=== PATIENT | female | born 1970 | race Caucasian/White ===

== ENCOUNTER 2021-01-27 08:28 | Outpatient (REF) | payer OTHER, SELFPAY ==
[2021-01-27 11:30] LABS: Hematocrit 39.5 % (37.0-47.0); Hemoglobin 12.9 g/dl (12.0-16.0); Mean Corpuscular HGB Conc 32.7 g/dl (31.0-35.0); Mean Corpuscular Hemoglobin 29.4 pg (27.0-33.0); Mean Platelet Volume 11.9 fL (9.4-12.3); Platelet Count 239 X10*3/uL (160-400); Red Blood Count 4.39 X10*6/uL (4.20-5.50); Red Cell Distribution Width 12.5 % (11.0-16.0); White Blood Count 5.9 X10*3/uL (4.8-10.8)
[2021-01-27 11:47] LABS: Alanine Aminotransferase 6 U/L (0-31); Albumin Level 4.3 g/dL (3.5-5.0); Alkaline Phosphatase 40 U/L (39-117); Anion Gap 11 (12-20); Aspartate Amino Transferase 11 U/L (5-31); Bilirubin Total 0.6 mg/dL (0.0-1.0); Blood Urea Nitrogen 16 mg/dL (9-16); Calcium 9.5 mg/dL (8.4-10.2); Carbon Dioxide 25 mmol/L (22-29); Chloride 106 mmol/L (96-108); Cholesterol 162 mg/dL; Estimated Glomerular Filt Rate > 60; Glucose Fasting 79 mg/dL (60-99); HDL Cholesterol 51 mg/dL; Iron 70 mcg/dL (30-160); LDL Cholesterol Calculated 98 mg/dl; Percent Iron Saturation 20 % (15-50); Potassium 3.7 mmol/L (3.3-5.1); Sodium 138 mmol/L (135-145); Total Iron Binding Capacity 354 mcg/dL (228-428); Total Protein 7.2 g/dL (6.5-8.0); Triglycerides 69 mg/dL; Unsaturated Iron Binding 284 ug/dL
[2021-01-27 11:59] LABS: TSH reflex Free T4 1.86 uIU/mL (0.32-4.0); Vitamin D 25-OH Total 27.7 ng/mL (>30)
== END 2021-01-27 08:29 | disposition home or self-care (01) ==
LOC: HO.HMGCLDS 08:28
PROVIDERS: PCP Internal Medicine; Visit Provider Internal Medicine
DX: Z00.00 Encounter for general adult medical examination without abnormal findings (principal); L29.0 Pruritus ani; D50.9 Iron deficiency anemia, unspecified
CPT/HCPCS: 36415; 80053; 80061; 82306; 83540; 84443; 85027

== ENCOUNTER 2022-01-31 08:59 | Outpatient (REF) | payer OTHER, SELFPAY ==
[2022-01-31 11:29] LABS: MANUAL DIFF FLAG NO
[2022-01-31 11:32] LABS: Appearance Urine Clear; Color Urine Yellow; Glucose Urine UA Negative (Negative); Leukocyte Esterase Urine Trace (Negative); Nitrite Urine Negative (Negative); PH 5.5 (5.0-9.0); UMIC TRIGGER UA YES; Urine Blood Moderate (2+) (Negative); Urine Ketones Negative (Negative); Urine Protein Negative (Neg-Trace)
[2022-01-31 11:38] LABS: Basophils Absolute Auto 0.1 X10*3/uL (0.0-0.2); Basophils Percent Auto 1.7 % (0-2); Eosinophils Absolute Auto 0.2 X10*3/uL (0.0-0.4); Hematocrit 37.1 % (37.0-47.0); Hemoglobin 12.1 g/dl (12.0-16.0); Imm Gran Abs Auto 0.01 X10*3/uL (0.00-0.03); Imm Gran Pct Auto 0.2 % (0.0-0.4); Lymphocytes Absolute Auto 1.4 X10*3/uL (1.2-4.9); Lymphocytes Percent Auto 29.5 % (20-40); Mean Corpuscular HGB Conc 32.6 g/dl (31.0-35.0); Mean Corpuscular Hemoglobin 29.7 pg (27.0-33.0); Mean Corpuscular Volume 91.2 fL (80.0-98.0); Mean Platelet Volume 11.8 fL (9.4-12.3); Monocytes Absolute Auto 0.4 X10*3/uL (0.1-1.2); Monocytes Percent Auto 8.6 % (2-11); Neutrophils Absolute Auto 2.7 x10*3/uL (2.0-8.3); Platelet Count 256 X10*3/uL (160-400); Red Blood Count 4.07 X10*6/uL (4.20-5.50); Red Cell Distribution Width 12.4 % (11.0-16.0); White Blood Count 4.7 X10*3/uL (4.8-10.8)
[2022-01-31 11:48] LABS: Bacteria Urine 1+ (None Seen); Hyaline Casts Urine 0-2 /LPF (0-2)
[2022-01-31 13:48] LABS: Alanine Aminotransferase 8 U/L (0-31); Albumin Level 4.1 g/dL (3.5-5.0); Alkaline Phosphatase 45 U/L (39-117); Anion Gap 9 (12-20); Aspartate Amino Transferase 13 U/L (5-31); Bilirubin Total 0.3 mg/dL (0.0-1.0); Blood Urea Nitrogen 12 mg/dL (9-16); Calcium 8.9 mg/dL (8.4-10.2); Carbon Dioxide 27 mmol/L (22-29); Chloride 108 mmol/L (96-108); Cholesterol 156 mg/dL; Estimated Glomerular Filt Rate > 60; Glucose Fasting 82 mg/dL (60-99); HDL Cholesterol 57 mg/dL; Iron 25 mcg/dL (30-160); LDL Cholesterol Calculated 87 mg/dl; Percent Iron Saturation 8 % (15-50); Potassium 3.9 mmol/L (3.3-5.1); Sodium 140 mmol/L (135-145); TSH reflex Free T4 1.38 uIU/mL (0.32-4.0); Total Iron Binding Capacity 308 mcg/dL (228-428); Total Protein 6.7 g/dL (6.5-8.0); Triglycerides 63 mg/dL; Unsaturated Iron Binding 283 ug/dL
[2022-02-01 08:58] LABS: Follicle Stimulating Hormone 5.3 mIU/mL
== END 2022-01-31 09:00 | disposition home or self-care (01) ==
LOC: HO.HMGCLDS 08:59
PROVIDERS: PCP Internal Medicine; Visit Provider Internal Medicine
DX: Z00.00 Encounter for general adult medical examination without abnormal findings (principal); N92.0 Excessive and frequent menstruation with regular cycle; D50.9 Iron deficiency anemia, unspecified
CPT/HCPCS: 36415; 80053; 80061; 81001; 83001; 83540; 84443; 85025

== ENCOUNTER 2022-02-08 09:16 | Outpatient (REF) | payer OTHER, SELFPAY ==
[2022-02-08 11:17] LABS: Appearance Urine Clear; Color Urine Yellow; Glucose Urine UA Negative (Negative); Leukocyte Esterase Urine Negative (Negative); Nitrite Urine Negative (Negative); PH 6.5 (5.0-9.0); Specific Gravity - Urine 1.025 (1.005-1.025); UMIC TRIGGER UACC YES; Urine Blood Trace (Negative); Urine Ketones Negative (Negative); Urine Protein Negative (Neg-Trace)
[2022-02-08 11:24] LABS: Bacteria Urine None Seen (None Seen); Hyaline Casts Urine 0-2 /LPF (0-2); Squamous Epithelial Cell Urine 0-2 /HPF (0-2); WBC Urine 0-5 /HPF (0-5)
== END 2022-02-08 09:17 | disposition home or self-care (01) ==
LOC: HO.HMGCLDS 09:16
PROVIDERS: PCP Internal Medicine; Visit Provider Internal Medicine
DX: R31.9 Hematuria, unspecified (principal)
CPT/HCPCS: 81001

== ENCOUNTER → 2022-03-16 08:54 | Outpatient (BNVA) | payer OTHER, SELFPAY | PROVIDERS: PCP Internal Medicine; Visit Provider Advanced Practice Midwife | DX: Z13.89 Encounter for screening for other disorder (principal) ==

== ENCOUNTER 2022-03-20 15:09 | Outpatient (REF) | payer OTHER, SELFPAY ==
--- NOTE | ~2022-03-20 | US_ITS ---
EXAMINATION: US RETROPERITONEAL LIMITED (RENAL ONLY) CLINICAL INFORMATION: Hematuria, unspecified. COMPARISON: None TECHNIQUE: Real-time imaging of the kidneys. FINDINGS: RIGHT KIDNEY: 11.2 x 5.5 x 5.4 cm (SAG x AP x TRV). The kidney is normal in size, contour, and echogenicity. Renal cortical thickness is normal. No renal calculi or focal parenchymal lesions. Mild pelviectasis LEFT KIDNEY: 11.1 x 5.0 x 4.1 cm (SAG x AP x TRV). The kidney is normal in size, contour, and echogenicity. Renal cortical thickness is normal. No renal calculi or focal parenchymal lesions. Mild pelviectasis. US/US renal BI IMPRESSION: Mild bilateral pelviectasis. No nephrolithiasis.
--- NOTE | ~2022-03-20 | US_ITS ---
EXAMINATION: US PELVIS CLINICAL INFORMATION: Excessive and frequent menstruation. COMPARISON: None TECHNIQUE: Ultrasound of the pelvis is performed using both transabdominal and transvaginal transducers along with Doppler. Transvaginal imaging is performed due to inadequate visualization transabdominally. FINDINGS: Uterus: The uterus is anteverted and measures 9.4 x 5.0 x 6.2 cm for a volume of 151 mL. The double wall endometrial thickness is 13 mm. The uterus is smooth in contour and has normal myometrial echogenicity. Two (2) uterine fibroids are seen, one anteriorly measuring 0.6 x 0.5 x 0.8 cm and one inferiorly measuring 1.9 x 1.3 x 2.3 cm. Some calcifications are seen in the cervix. Adnexa: Both ovaries are visualized. There is normal color flow to the adnexa. There is no ovarian torsion. There is no pelvic ascites or fluid collection. Right ovary measures 3.5 x 2.4 x 2.4 cm for a volume of 10.5 mL which includes a complex 2.0 x 1.8 x 1.3 cm cyst. Left ovary measures 2.4 x 2.2 x 1.8 cm for a volume of 5 mL. US/US pelvic and transvaginal IMPRESSION: 1. Two small uterine fibroids. 2. Benign-appearing right ovarian cyst needs no further follow-up.
== END 2022-03-20 15:10 | disposition home or self-care (01) ==
LOC: HO.HMGCX 15:09
PROVIDERS: PCP Internal Medicine; Visit Provider Internal Medicine
DX: R31.9 Hematuria, unspecified (principal); N92.0 Excessive and frequent menstruation with regular cycle; D50.9 Iron deficiency anemia, unspecified
CPT/HCPCS: 76775; 76830; 76856

== ENCOUNTER 2022-07-19 10:40 | Outpatient (REF) | payer OTHER, SELFPAY ==
--- NOTE | ~2022-07-19 | XR_ITS ---
EXAMINATION: XR CHEST CLINICAL INFORMATION: Cough. COMPARISON: None available. TECHNIQUE: 2 views of the chest were obtained. FINDINGS: No significant abnormality is noted involving the heart, lungs, mediastinum, bony thorax or soft tissues. XR/XR chest 2V IMPRESSION: Unremarkable chest examination.
== END 2022-07-19 10:41 | disposition home or self-care (01) ==
LOC: HO.HMGCX 10:40
PROVIDERS: PCP Internal Medicine; Visit Provider Internal Medicine
DX: R05.9 Cough, unspecified (principal)
CPT/HCPCS: 71046

== ENCOUNTER 2022-09-21 09:45 | Outpatient (AMB) | payer OTHER, SELFPAY ==
[2022-09-21 09:46] VITALS: BP 116/68; PULSE 88; O2SAT 98; BMI 23.0
--- NOTE | 2022-09-21 09:46 | A.OFFPC_ITS ---
Vital Signs 09/21/22 09:46 Height 5 ft 4 in Weight 134 lb BMI 23.0 BP 116/68 Blood Pressure Location Lt brachial Position Sitting Pulse 88 Pulse Source Pulse Oximeter Pulse Oximetry (%) 98 Oxygen Delivery Method Room Air Intake Visit Reasons: Follow up Intake Note: Pt is here today for a follow up visit. Allergies No Known Allergies Allergy (Verified 09/21/22 09:48) Tobacco use date assessed: 09/21/22 Dental Screening Dental Screen Date: 09/21/22 Did you have a dental visit in the last 12 months?: Yes Did you have a dental problem in the last 6 months where you did not have access to dental care?: No Was dental information given to patient?: Patient has dentist HPI Follow up HPI Details Pt presents for f/u migraine PERSON up to 3 times a month controlled on Ubrelvy. 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 1. Little interest or pleasure in doing things: not at all 2. Feeling down, depressed, or hopeless: not at all 3. Trouble falling or staying asleep, or sleeping too much: not at all 4. Feeling tired or having little energy: several days 5. Poor appetite or overeating: not at all 6. Feeling bad about yourself - or that you are a failure or have let yourself or your family down: not at all 7. Trouble concentrating on things, such as reading the newspaper or watching television: not at all 8. Moving or speaking so slowly that other people could have noticed. Or the opposite - being so fidgety or restless that you have been moving around a lot more than usual: not at all 9. Thoughts that you would be better off or of hurting yourself in some way: not at all Total score: 1 Depression Screening Interpretation: Negative Source: Developed by Drs. Navdeep Young, Gabby Porras, Gino Kramer and colleagues, with an educational susan from [employer] Thrive Questionnaire Date Thrive assessed: 09/21/22 I am a: Patient What is your living situation today?: I have a steady place to live Within the past 12 months, did the food you bought not last and you didn't have the money to get more?: Never true Within the past 12 months, did you worry whether your food would run out before you got money to buy more?: Never true Do you have trouble paying for medicines?: No Do you have trouble getting transportation to medical appointments?: No Do you have trouble paying your heating and electricity bill?: No Do you have trouble taking care of your child, family member or friend?: No Do you have trouble with day-to-day activities such as bathing, preparing meals, shopping, managing finances, etc.?: No Are you currently unemployed and looking for a job?: No Are you interested in more education?: No Please select the resources that you would like help with: None Currently or been in a relationship where the following occur: no concerns reported AUDIT C Alcohol Use Questionnaire (AUDIT-C) 1. How often do you have a drink containing alcohol?: 2-3 times a week 2. How many drinks containing alcohol do you have on a typical day when you are drinking?: 1 or 2 3. How often do you have six or more drinks on one occasion?: Never Total Score: 3 SANDEEP-7 AMB Questionnaire SANDEEP-7 Date SANDEEP - 7 assessed: 09/21/22 Feeling nervous, anxious, or on edge: 0 = Not at all Not being able to stop or control worryin = Not at all Worrying too much about different things: 0 = Not at all Trouble relaxin = Not at all Being so restless that it is hard to sit still: 0 = Not at all Becoming easily annoyed or irritable: 0 = Not at all Feeling afraid as if something awful might happen: 0 = Not at all Total SANDEEP-7 score (0-4 normal; 5-9 mild; 10-14 moderate; 15-21 severe): 0 Source: Developed by Drs. Navdeep Young, Gabby Porras, Gino Kramer and colleagues, with an educational susan from [employer] Review of Systems Const All systems reviewed & are unremarkable except as noted in HPI and below Reports no additional complaints Eyes Reports no additional complaints ENT Reports no additional complaints Card Reports no additional complaints Resp Reports no additional complaints GI Reports no additional complaints Reports no additional complaints Physical exam (Primary Care) Vital Signs: Last Vital Signs Pulse 88 09/21/22 09:46 BP 116/68 09/21/22 09:46 Pulse Ox 98 09/21/22 09:46 Oxygen Delivery Method Room Air 09/21/22 09:46 BMI result Body Mass Index 23.0 Tobacco/Smoking Status: Tobacco use Status Tobacco use date assessed 09/21/22 09/21/22 09:50 Patient Tobacco Use Status Former Tobacco user (09/21/22 09:50 years ) Tobacco use type Cigarette 09/21/22 09:50 e-Cigarette/Vaping Use Never Used 09/21/22 09:50 PHQ-9: PHQ-9 Score PHQ-9: Total score 1 09/21/22 09:53 Depression Screening Interpretation: Negative Thrive Assessment: Date of Thrive Assessment Date Thrive assessed 09/21/22 09/21/22 09:53 Currently or been in a relationship where the following occur: no concerns reported Const General: no acute distress HENMT Head: Yes normal to inspection Ears: hearing grossly normal bilaterally Throat: Yes posterior oropharynx normal Eyes General: appearance normal, both eyes and all related structures Resp Effort & Inspection: normal respiratory effort Auscultation: clear to auscultation bilaterally Cardio Rhythm: regular rhythm Heart sounds: S1 normal heart sound present and S2 normal heart sound present GI Auscultation: normal bowel sounds Assessment and Plan Assessment & Plan (1) Annual physical exam: Code(s): Z00.00 - Encounter for general adult medical examination without abnormal findings (2) Iron deficiency anemia: Code(s): D50.9 - Iron deficiency anemia, unspecified Plan: cont Iron suppl (3) Migraines: Code(s): G43.909 - Migraine, unspecified, not intractable, without status migrainosus Plan: cont Ubrelvy prn. PE in 6 months Orders: Orders MM screening mammo BI Today Z12.31 - Encounter for screening mammogram for malignant neoplasm of breast Lipid Panel 6 Months D50.9 - Iron deficiency anemia, unspecified, Z00.00 - Encounter for general adult medical examination without abnormal findings Comprehensive [place]. Panel Fast 6 Months D50.9 - Iron deficiency anemia, unspecified, Z00.00 - Encounter for general adult medical examination without abnormal findings IRON PROFILE 6 Months D50.9 - Iron deficiency anemia, unspecified, Z00.00 - Encounter for general adult medical examination without abnormal findings Complete Blood Count Auto Diff 6 Months D50.9 - Iron deficiency anemia, unspecified, Z00.00 - Encounter for general adult medical examination without abnormal findings UA w Microscopic 6 Months D50.9 - Iron deficiency anemia, unspecified, Z00.00 - Encounter for general adult medical examination without abnormal findings Referrals Gastroenterology Referral Z00.00 - Encounter for general adult medical examination without abnormal findings Coding Level of Care Code Est Pt Level 3 (43529) Diagnoses Annual physical exam Z00.00 Iron deficiency anemia D50.9 Migraines G43.909
== END 2022-09-21 10:37 | disposition home or self-care (01) ==
PROVIDERS: PCP Internal Medicine; Visit Provider Internal Medicine
DX: D50.9 Iron deficiency anemia, unspecified (principal); G43.909 Migraine, unspecified, not intractable, without status migrainosus
CPT/HCPCS: 99213

== ENCOUNTER 2022-11-08 11:33 | Outpatient (REF) | payer OTHER, SELFPAY | END 2022-11-08 11:34 | disposition home or self-care (01) | LOC: HO.MAMMO 11:33 | PROVIDERS: PCP Internal Medicine; Visit Provider Internal Medicine | DX: Z12.31 Encounter for screening mammogram for malignant neoplasm of breast (principal) | CPT/HCPCS: 77063; 77067 ==

== ENCOUNTER → 2022-11-08 11:45 | Outpatient (BNV) | payer OTHER, SELFPAY | PROVIDERS: PCP Internal Medicine; Visit Provider Radiology Diagnostic Radiology | DX: Z12.31 Encounter for screening mammogram for malignant neoplasm of breast (principal) | CPT/HCPCS: 77063; 77067 ==

== ENCOUNTER 2022-11-14 10:40 | Outpatient (REF) | payer OTHER, SELFPAY ==
[2022-11-14 13:21] LABS: MANUAL DIFF FLAG NO
[2022-11-14 13:39] LABS: Basophils Absolute Auto 0.1 X10*3/uL (0.0-0.2); Basophils Percent Auto 1.2 % (0-2); Eosinophils Absolute Auto 0.2 X10*3/uL (0.0-0.4); Eosinophils Percent Auto 4.7 % (0-4); Hematocrit 39.7 % (37.0-47.0); Hemoglobin 12.9 g/dl (12.0-16.0); Imm Gran Abs Auto 0.01 X10*3/uL (0.00-0.03); Imm Gran Pct Auto 0.2 % (0.0-0.4); Lymphocytes Absolute Auto 1.2 X10*3/uL (1.2-4.9); Lymphocytes Percent Auto 23.7 % (20-40); Mean Corpuscular HGB Conc 32.5 g/dl (31.0-35.0); Mean Corpuscular Hemoglobin 28.6 pg (27.0-33.0); Monocytes Absolute Auto 0.3 X10*3/uL (0.1-1.2); Monocytes Percent Auto 6.4 % (2-11); Neutrophils Absolute Auto 3.3 x10*3/uL (2.0-8.3); Neutrophils Percent Auto 63.8 % (45-73); Platelet Count 229 X10*3/uL (160-400); Red Blood Count 4.51 X10*6/uL (4.20-5.50); Red Cell Distribution Width 13.4 % (11.0-16.0); White Blood Count 5.1 X10*3/uL (4.8-10.8)
[2022-11-14 14:02] LABS: Alanine Aminotransferase < 5 U/L (0-31); Albumin Level 4.2 g/dL (3.5-5.0); Alkaline Phosphatase 46 U/L (39-117); Anion Gap 9 (12-20); Aspartate Amino Transferase 13 U/L (5-31); Bilirubin Total 0.3 mg/dL (0.0-1.0); Blood Urea Nitrogen 9 mg/dL (9-16); Calcium 9.4 mg/dL (8.4-10.2); Carbon Dioxide 25 mmol/L (22-29); Chloride 108 mmol/L (96-108); Estimated Glomerular Filt Rate > 60; Glucose Fasting 87 mg/dL (60-99); Iron 101 mcg/dL (30-160); Percent Iron Saturation 31 % (15-50); Potassium 3.8 mmol/L (3.3-5.1); Sodium 138 mmol/L (135-145); Total Iron Binding Capacity 321 mcg/dL (228-428); Total Protein 7.2 g/dL (6.5-8.0); Unsaturated Iron Binding 220 ug/dL
[2022-11-14 14:37] LABS: Folate 12.1 ng/mL (> or = 4.0); Vitamin B12 286 pg/mL (200-900)
== END 2022-11-14 10:41 | disposition home or self-care (01) ==
LOC: HO.HMGCLDS 10:40
PROVIDERS: PCP Internal Medicine; Visit Provider Internal Medicine
DX: D50.9 Iron deficiency anemia, unspecified (principal); Z86.2 Personal history of diseases of the blood and blood-forming organs and certain disorders involving the immune mechanism
CPT/HCPCS: 36415; 80053; 82607; 82746; 83540; 85025

== ENCOUNTER 2022-12-07 09:15 | Outpatient (AMB) | payer OTHER, SELFPAY ==
--- NOTE | 2022-12-07 09:20 | MHC.OFFVIS ---
Intake Vital Signs 12/07/22 09:22 Height 5 ft 4 in Weight 136 lb 10.986 oz BMI 23.5 BP 108/78 Blood Pressure Location Lt brachial Position Sitting Pulse 79 Intake Visit Reasons: Colonoscopy Screening Intake Note: Dolly presents in the office as a new patient for colonoscopy screening. CC: She states that she has never had a colonoscopy. She states that pains that she gets is before her period and she is not sure if it is menopause related. All her life she has had itching in her colon - she has steroid cream for her hemorrhoids. She has fairly small internal ones. The itching it not consistent but it has been there for a long time. Allergies No Known Allergies Allergy (Verified 12/07/22 09:23) Medication List - Last Reconciled 12/07/22 by Jamila Alex PA-C acetaminophen (Tylenol Extra Strength) 500 mg PO Q6H PRN ferrous sulfate (Feosol) 325 mg PO DAILY PRN Ubrelvy (ubrogepant) 100 mg PO ONCE NS HPI HPI Comments History of Present Illness Details A 52 y/o female referred for index screening colonoscopy Bowels are normal- has hemorrhoids- itching - uses creams-she has script from in [place] that works well- She is pre menopausal Appetite is good- she does not have heartburn- she has epigastric discomfort- it wanders- There is a known family history that this cause her for concern. She had an U/S there were no issues She is requesting an EGD- her father has a lot of intestinal issues -she had very rare occasion has regurg. 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 [employer] Housing: House Alcohol intake: current Alcohol intake frequency: a few times a week Patient Tobacco Use Status: Former Tobacco user (20 years ) Tobacco use type: Cigarette Years Smoked: 10 years e-Cigarette/Vaping Use: Never Used Current occupational status: employed Cognitive needs: No Hearing needs: No Vision needs: Yes Female Reproductive History Menstrual Age of Menarche: 14 Review of Systems Const All systems reviewed & are unremarkable except as noted in HPI and below Card Denies chest pain and Denies dyspnea Resp Denies dyspnea GI Denies abdominal pain, Denies heartburn, Denies diarrhea, Denies nausea, Denies vomiting and Reports other (rectal itch, left upper quadrant discomfort unable to qualify/quantum) Physical Exam Vital Signs: Last Vital Signs Pulse 79 12/07/22 09:22 BP 108/78 12/07/22 09:22 BMI result Body Mass Index 23.5 Const General: cooperative, healthy appearing and comfortable Orientation/consciousness: patient oriented x3 Limitations: no limitations Eyes Sclerae: sclerae normal Resp Effort & Inspection: normal respiratory effort and able to speak in complete sentences Auscultation: clear to auscultation bilaterally, no rales, no rhonchi and no wheezes Cardio Rate: regular rate Rhythm: regular rhythm Heart sounds: S1 normal heart sound present and S2 normal heart sound present GI Palpation (GI): Soft to palpation and nontender Auscultation: normal bowel sounds Skin General skin exam: no rashes or lesions noted Neuro General: patient oriented x3 Extrem General: Yes full ROM Psych Appearance: grossly normal and well kempt Mental Status: mental status grossly normal Speech and movement: Normal speech and movement present and Clear speech present Affect: normal affect Attitude: cooperative Thought process: Normal thought process present Thought content: Normal thought content present Insight: Good insight present (Psych) Judgement: Good judgement present (Psych) Assessment & Plan Assessment & Plan (1) Rectal itching: Comment: Pleasant somewhat anxious 52-year-old female Chronic rectal itching associates with hemorrhoids using unknown rectal cream with good response- Code(s): L29.0 - Pruritus ani Plan: Continue rectal cream (2) Encounter for screening colonoscopy: Comment: Screening colonoscopy EGD may be low yield however GI family history unclear if negative may be reassured Discussed procedures, rare risks, need for escorted Code(s): Z12.11 - Encounter for screening for malignant neoplasm of colon Plan: Index Screening colonoscopy Plan EGD/ colon - MG prep literature given Maintain high-fiber Rectal cream Orders: Orders H pylori Ag Stool Today A04.8 - Other specified bacterial intestinal infections EGD/[place] Combo - GI Use Only Today L29.0 - Pruritus ani, Z12.11 - Encounter for screening for malignant neoplasm of colon Medications: New bisacodyl (Dulcolax (bisacodyl)) Day before procedure, prep day Take 4 tablets by mouth upon awakening followed by large glass of water 20 mg (4 x 5 mg) PO ONCE 1 day 4 tabs 0RF colonoscopy prep Z12.11 - Encounter for screening for malignant neoplasm of colon polyethylene glycol 3350 (Miralax) Take as directed by mouth the day before your procedure. 238 grams PO ONCE 1 day PRN 238 grams 0RF laxative effect Changed From ferrous sulfate (Feosol) 325 mg PO DAILY 30 tabs 0RF To ferrous sulfate (Feosol) 325 mg PO DAILY PRN Patient Instructions: EGD/ colon - MG prep Maintain high Coding Level of Care Code New Pt Level 3 (10605) Diagnoses Rectal itching L29.0 Encounter for screening colonoscopy Z12.11 Time Spent (min) 30
[2022-12-07 09:22] VITALS: BP 108/78; PULSE 79; BMI 23.5
== END 2022-12-07 11:18 | disposition home or self-care (01) ==
PROVIDERS: PCP Internal Medicine; Visit Provider Physician Assistant
DX: L29.0 Pruritus ani (principal); Z12.11 Encounter for screening for malignant neoplasm of colon
CPT/HCPCS: 99203

== ENCOUNTER → 2022-12-07 09:15 | Outpatient (BNVA) | payer OTHER, SELFPAY | PROVIDERS: PCP Internal Medicine; Visit Provider Physician Assistant ==

== ENCOUNTER 2022-12-29 11:37 | Outpatient (REF) | payer OTHER, SELFPAY | END 2022-12-29 11:38 | disposition home or self-care (01) | LOC: HO.LNP 11:37 | PROVIDERS: Visit Provider Physician Assistant | DX: A04.8 Other specified bacterial intestinal infections (principal) | CPT/HCPCS: 87338 ==

== ENCOUNTER 2023-03-19 10:19 | Outpatient (AMB) | payer OTHER, SELFPAY ==
[2023-03-19 10:22] VITALS: BMI 26.8
--- NOTE | 2023-03-19 10:22 | MHC.OFFVIS ---
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 She is feeling absolutely drain by her heavy periods she is 52 years old and she is not sure when she will be going through menopause of course her mother went through menopause before 50. Her periods are absolutely regular and she could clock when she is going to get it as she was also able to tell exactly when she was ovulating on day 13 for all her life. On its heaviest day which is her 2nd day she is changing tampons 1 almost after another. 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 She also told me straight from the very beginning of the visit that she did not want to have another ultrasound because her insurance does not cover it and it cost her over a 1000 dollars to get the ultrasound last year. In addition she remembers that I talked to her about the Mirena IU S in the past and she does not think that is natural and is resistant to that idea as well. She says that she knows that her recent CBC was within the normal range however when she has ignored her symptoms of anemia in the past she became extremely anemic after her. She feels completely washed out and worn out and so per discussion with her doctor she has agreed on a plan to just take iron for that week. She used to take it all the time but she was recommended by her PCC in to not do that because she was within the normal range in too much iron isn't good either. She thinks that she may be a little bit depressed but it is mostly the migraines at her really impacted her life but the heavy periods do not help either. She is to the same person for 30 years and says he would like to have sex more than she does but has no worries about infection she does not want to get a Pap smear if it is not do because her insurance company will only pay for 1 every 5 years she has no history of abnormals she had thought that she had fibroids removed in the past but I reviewed her 74 pages of records from [place] and what she had removed was an endometrial polyp on 01/15/2018. She did have an ultrasound last spring per her primary that showed 2 small fibroids. She was wondering if they were growing but she does not want to repeat the ultrasound for the financial reasons. Her last Pap was done 01/13/2020 at [place] and it was negative with negative HPV and she has no history of abnormals At this visit we discussed all the possible ways of managing heavy menses which appeared very normal by her history and do not seem to in any way represent an abnormal bleeding pattern however they are heavy and they are troublesome to her leading to some periodic fluctuations of her H&H. Discussed the common use of the Mirena IU S discussed that sometimes progestin only pills maybe used because she asked about this but not as commonly as the Mirena to manage this issue. Also discussed the possible use of endometrial ablation however this is an expensive surgical procedure and most likely would not be covered unless other methods have been tried and failed. 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 [employer] Housing: House Alcohol intake: current Alcohol intake frequency: a few times a week Patient Tobacco Use Status: Former Tobacco user (20 years ) Tobacco use type: Cigarette Years Smoked: 10 years e-Cigarette/Vaping Use: Never Used Current occupational status: employed Cognitive needs: No Hearing needs: No Vision needs: Yes Female Reproductive History Menstrual Age of Menarche: 14 Duration of menses: 3-5 days Date of last menstrual period: 03/18/23 control method: none Total pregnancies: 2 Full term: 1 Number of Living Children: 1 Ab induced: 1 Date of last pap smear: 03/15/10 (negative) Date of Mammogram: 11/08/22 Physical Exam Vital Signs: BMI result Body Mass Index 26.8 Const General: healthy appearing, comfortable, no acute distress, well developed and alert Nutritional Appearance: average body habitus Orientation/consciousness: patient oriented x3 Limitations: no limitations HEENT Head: Yes normocephalic Neck Neck: Yes normal visual inspection Chest Chest palpation & inspection: normal inspection of the chest Breast/axilla inspection: normal inspection of the breasts and normal inspection of the axillae Breast/axilla palpation: normal palpation of the breasts and normal palpation of the axillae Resp Effort & Inspection: normal respiratory effort GI Inspection: Yes normal to inspection, No Abdominal wall edema and No distended Palpation (GI): Soft to palpation and nontender Other: Normal external exam normal vagina with heavy menses present cervix long close thick firm mobile midposition to anteverted uterus is retroverted mobile nontender and not enlarged adnexa not enlarged good tone with Kegel. General: Yes bladder normal to palpation External Female Exam: normal external appearance and normal appearance of the urethra Speculum Exam - Vagina: normal appearance of the vagina, normal palpation and normal vaginal discharge Speculum Exam - Cervix: normal appearance of the cervix, normal palpation and nontender Bimanual exam- vagina & uterus: normal bimanual exam, normal palpation, uterine size normal, bladder normal to palpation, consistency normal, normal palpation, uterine mobility normal, uterine shape normal, No Cervical tenderness present, non-tender and no cervical motion tenderness Bimanual Exam- Adnexa, other: normal adnexae, no masses, normal and No adnexal tenderness Neuro General: patient oriented x3 Results Reviewed Results Reviewed: Name: Wargulewska,Dolly Age/Sex: 52/F : 1970 Unit#: [id number] Attend Dr: Mikayla Yanez MD Re11/14/22 Status: DEP REF Location: [facility] Disch: SPEC : [id number] LANDY: 11/14/22 STATUS: COMP REQ : [id number] RECD: 11/14/[address]: Mikayla Yanez MD COMP: 11/14/22 ENTERED: 11/14/22 [facility] DR: ORDERED: CBC Auto Diff Test Result Flag Reference WBC 5.1 4.8-10.8 X10*3/uL RBC 4.51 4.20-5.50 X10*6/uL HGB 12.9 12.0-16.0 g/dl HCT 39.7 37.0-47.0 % MCV 88.0 80.0-98.0 fL MCH 28.6 27.0-33.0 pg MCHC 32.5 31.0-35.0 g/dl RDW 13.4 11.0-16.0 % PLT 229 160-400 X10*3/uL MPV 12.0 9.4-12.3 fL Neut Pct Auto 63.8 45-73 % ImGran Pct Auto 0.2 0.0-0.4 % Lymp Pct Auto 23.7 20-40 % [place] Pct Auto 6.4 2-11 % Eos Pct Auto 4.7 H 0-4 % Baso Pct Auto 1.2 0-2 % NRBC Pct Auto 0.0 0.0-0.2 /100WBC ANC Neut Abs # 3.3 2.0-8.3 x10*3/uL ImGran Abs Auto 0.01 0.00-0.03 X10*3/uL Lymph Abs Auto 1.2 1.2-4.9 X10*3/uL [place] Abs Auto 0.3 0.1-1.2 X10*3/uL Eos Abs Auto 0.2 0.0-0.4 X10*3/uL Baso Abs Auto 0.1 0.0-0.2 X10*3/uL NRBC Abs Auto 0.000 0.0-0.012 X10*3/uL Patient: Katie Cano#: [id number]: 1970Acct:[id number]/Sex: 51 / FADM Date: 03/20/22Loc: [email or web address] Dr: Mikayla Yanez MD Ordering Physician: Mikayla Yanez MD Date of Service: 03/20/22 Procedure(s): US pelvic and transvaginal Accession Number(s): [id number] cc: Mikayla Yanez MD~ EXAMINATION: US PELVIS CLINICAL INFORMATION: Excessive and frequent menstruation. COMPARISON: None TECHNIQUE: Ultrasound of the pelvis is performed using both transabdominal and transvaginal transducers along with Doppler. Transvaginal imaging is performed due to inadequate visualization transabdominally. FINDINGS: Uterus: The uterus is anteverted and measures 9.4 x 5.0 x 6.2 cm for a volume of 151 mL. The double wall endometrial thickness is 13 mm. The uterus is smooth in contour and has normal myometrial echogenicity. Two (2) uterine fibroids are seen, one anteriorly measuring 0.6 x 0.5 x 0.8 cm and one inferiorly measuring 1.9 x 1.3 x 2.3 cm. Some calcifications are seen in the cervix. Adnexa: Both ovaries are visualized. There is normal color flow to the adnexa. There is no ovarian torsion. There is no pelvic ascites or fluid collection. Right ovary measures 3.5 x 2.4 x 2.4 cm for a volume of 10.5 mL which includes a complex 2.0 x 1.8 x 1.3 cm cyst. Left ovary measures 2.4 x 2.2 x 1.8 cm for a volume of 5 mL. US/US pelvic and transvaginal IMPRESSION: 1. Two small uterine fibroids. 2. Benign-appearing right ovarian cyst needs no further follow-up. Dictated By:Gage Jorgensen MDSigned By:<Electronically signed by Gage Jorgensen MD in OV>03/21/22 0822 DD/ 1616TD/TT: Buzzsaw Operator Helper: WILLIAM Assessment & Plan Assessment & Plan (1) Cervical cancer screening: Comment: History of no abnormal Paps. Last Pap smear 2019 at [facility]. Code(s): Z12.4 - Encounter for screening for malignant neoplasm of cervix (2) Hx of iron deficiency anemia: Comment: exacerbated by menorrhagia, takes iron when needs it, cbc wnl 03/20. 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 She is feeling absolutely drain by her heavy periods she is 52 years old and she is not sure when she will be going through menopause of course her mother went through menopause before 50. Her periods are absolutely regular and she could clock when she is going to get it as she was also able to tell exactly when she was ovulating on day 13 for all her life. On its heaviest day which is her 2nd day she is changing tampons 1 almost after another. 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 She also told me straight from the very beginning of the visit that she did not want to have another ultrasound because her insurance does not cover it and it cost her over a 1000 dollars to get the ultrasound last year. In addition she remembers that I talked to her about the Mirena IU S in the past and she does not think that is natural and is resistant to that idea as well. She says that she knows that her recent CBC was within the normal range however when she has ignored her symptoms of anemia in the past she became extremely anemic after her. She feels completely washed out and worn out and so per discussion with her doctor she has agreed on a plan to just take iron for that week. She used to take it all the time but she was recommended by her PCC in to not do that because she was within the normal range in too much iron isn't good either. She thinks that she may be a little bit depressed but it is mostly the migraines at her really impacted her life but the heavy periods do not help either. She is to the same person for 30 years and says he would like to have sex more than she does but has no worries about infection she does not want to get a Pap smear if it is not do because her insurance company will only pay for 1 every 5 years she has no history of abnormals she had thought that she had fibroids removed in the past but I reviewed her 74 pages of records from [place] and what she had removed was an endometrial polyp on 01/15/2018. She did have an ultrasound last spring per her primary that showed 2 small fibroids. She was wondering if they were growing but she does not want to repeat the ultrasound for the financial reasons. Her last Pap was done 01/13/2020 at [place] and it was negative with negative HPV and she has no history of abnormals At this visit we discussed all the possible ways of managing heavy menses which appeared very normal by her history and do not seem to in any way represent an abnormal bleeding pattern however they are heavy and they are troublesome to her leading to some periodic fluctuations of her H&H. Discussed the common use of the Mirena IU S discussed that sometimes progestin only pills maybe used because she asked about this but not as commonly as the Mirena to manage this issue. Also discussed the possible use of endometrial ablation however this is an expensive surgical procedure and most likely would not be covered unless other methods have been tried and failed. She is up-to-date on her mammograms she declined any testing for STIs and Pap smear. She is not interested in a repeat ultrasound she is going to look up issues around the Mirena and I did discuss side effects and how long it can be used which is between 5 and 8 years depending on indication and Women's common experiences with it in terms of decreased libido but most women finding it essentially benign. 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 She is going to look it up read about it and think about it she will be seeing her primary care provider soon and said that she would talk to her more about issues about feeling down about the whole issues of migraines, and everything else. discussed rosie menopausal changes to expect as well. Coding Level of Care Code Est Pt Prev Care 40-64y(38199) Diagnoses Cervical cancer screening Z12.4 Hx of iron deficiency anemia Z86.2 Menorrhagia N92.0 Perimenopause N95.1 Migraines G43.909
== END 2023-03-19 11:48 | disposition home or self-care (01) ==
LOC: HO.HWS 10:19
PROVIDERS: PCP Internal Medicine; Visit Provider Advanced Practice Midwife
DX: Z01.411 Encounter for gynecological examination (general) (routine) with abnormal findings (principal); N92.0 Excessive and frequent menstruation with regular cycle; N95.1 Menopausal and female climacteric states; G43.909 Migraine, unspecified, not intractable, without status migrainosus; Z86.2 Personal history of diseases of the blood and blood-forming organs and certain disorders involving the immune mechanism
CPT/HCPCS: 99396

== ENCOUNTER → 2023-03-19 10:19 | Outpatient (BNVA) | payer OTHER, SELFPAY | PROVIDERS: PCP Internal Medicine; Visit Provider Advanced Practice Midwife ==

== ENCOUNTER 2023-03-21 08:25 | Outpatient (AMB) | payer OTHER, SELFPAY ==
[2023-03-21 08:51] VITALS: BP 100/66; PULSE 84; O2SAT 98; BMI 23.3
--- NOTE | 2023-03-21 08:51 | MHC.PC.OV ---
Vital Signs 03/21/23 08:51 Height 5 ft 4 in Weight 136 lb BMI 23.3 BP 100/66 Blood Pressure Location Rt brachial Position Sitting Pulse 84 Pulse Source Pulse Oximeter Pulse Oximetry (%) 98 Oxygen Delivery Method Room Air Intake Visit Reasons: PE Intake Note: Pt is here today for PE. Allergies No Known Allergies Allergy (Verified 03/21/23 09:05) Medication List - Last Reconciled 03/21/23 by Mikayla Yanez MD bisacodyl (Dulcolax (bisacodyl)) 20 mg (4 x 5 mg) PO ONCE 1 day ferrous sulfate (Feosol) 325 mg PO DAILY PRN nortriptyline 10 mg PO BEDTIME polyethylene glycol 3350 (Miralax) 238 grams PO ONCE PRN 1 day Ubrelvy (ubrogepant) 100 mg PO ONCE NS Tobacco use date assessed: 03/21/23 Dental Screening Dental Screen Date: 03/21/23 Did you have a dental visit in the last 12 months?: Yes Did you have a dental problem in the last 6 months where you did not have access to dental care?: No Was dental information given to patient?: Patient has dentist HPI PE HPI Details Pt presents for PE. Pt c/o increasing migraine frequency up to twice a week and getting more severe and lasting longer. Patient has been taking Ubrelvy with good relief. 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 1. Little interest or pleasure in doing things: not at all 2. Feeling down, depressed, or hopeless: not at all 3. Trouble falling or staying asleep, or sleeping too much: not at all 4. Feeling tired or having little energy: several days 5. Poor appetite or overeating: not at all 6. Feeling bad about yourself - or that you are a failure or have let yourself or your family down: not at all 7. Trouble concentrating on things, such as reading the newspaper or watching television: not at all 8. Moving or speaking so slowly that other people could have noticed. Or the opposite - being so fidgety or restless that you have been moving around a lot more than usual: not at all 9. Thoughts that you would be better off or of hurting yourself in some way: not at all Total score: 1 Depression Screening Interpretation: Negative Depression Screening Done: Yes Source: Developed by Drs. Navdeep Young, Gabby Porras, Gino Kramer and colleagues, with an educational susan from [email or web address]. Thrive Questionnaire Date Thrive assessed: 03/21/23 I am a: Patient What is your living situation today?: I have a steady place to live Within the past 12 months, did the food you bought not last and you didn't have the money to get more?: Never true Within the past 12 months, did you worry whether your food would run out before you got money to buy more?: Never true Do you have trouble paying for medicines?: No Do you have trouble getting transportation to medical appointments?: No Do you have trouble paying your heating and electricity bill?: No Do you have trouble taking care of your child, family member or friend?: No Do you have trouble with day-to-day activities such as bathing, preparing meals, shopping, managing finances, etc.?: No Are you currently unemployed and looking for a job?: No Are you interested in more education?: No Please select the resources that you would like help with: None Currently or been in a relationship where the following occur: no concerns reported THRIVE Score: 0 AUDIT C Alcohol Use Questionnaire (AUDIT-C) 1. How often do you have a drink containing alcohol?: 2-3 times a week 2. How many drinks containing alcohol do you have on a typical day when you are drinking?: 1 or 2 3. How often do you have six or more drinks on one occasion?: Never Total Score: 3 SANDEEP-7 AMB Questionnaire SANDEEP-7 Date SANDEEP - 7 assessed: 03/21/23 Feeling nervous, anxious, or on edge: 0 = Not at all Not being able to stop or control worryin = Not at all Worrying too much about different things: 0 = Not at all Trouble relaxin = Not at all Being so restless that it is hard to sit still: 0 = Not at all Becoming easily annoyed or irritable: 0 = Not at all Feeling afraid as if something awful might happen: 0 = Not at all Total SANDEEP-7 score (0-4 normal; 5-9 mild; 10-14 moderate; 15-21 severe): 0 Source: Developed by Drs. Navdeep Young, Gabby Porras, Gino Kramer and colleagues, with an educational susan from [employer]. Review of Systems Const All systems reviewed & are unremarkable except as noted in HPI and below Reports no additional complaints Eyes Reports no additional complaints ENT Reports no additional complaints Card Reports no additional complaints Resp Reports no additional complaints GI Reports no additional complaints Reports no additional complaints Musc Reports no additional complaints Physical exam (Primary Care) Vital Signs: Last Vital Signs Pulse 84 03/21/23 08:51 BP 100/66 03/21/23 08:51 Pulse Ox 98 03/21/23 08:51 Oxygen Delivery Method Room Air 03/21/23 08:51 BMI result Body Mass Index 23.3 Tobacco/Smoking Status: Tobacco use Status Tobacco use date assessed 03/21/23 03/21/23 09:07 Patient Tobacco Use Status Former Tobacco user (20 03/21/23 08:51 years ) Tobacco use type Cigarette 03/21/23 08:51 e-Cigarette/Vaping Use Never Used 03/21/23 08:51 Depression Screening Interpretation: Negative Thrive Assessment: Date of Thrive Assessment Date Thrive assessed 09/21/22 03/21/23 08:51 Currently or been in a relationship where the following occur: no concerns reported Const General: no acute distress HENMT Head: Yes normal to inspection Ears: hearing grossly normal bilaterally Face and sinus: Yes normal facial exam Mouth: Normal oral and palatal mucosa present Throat: Yes posterior oropharynx normal Eyes General: appearance normal, both eyes and all related structures Neck Neck: Yes no lymphadenopathy and Yes supple Resp Effort & Inspection: normal respiratory effort Auscultation: clear to auscultation bilaterally Cardio Rhythm: regular rhythm Heart sounds: S1 normal heart sound present and S2 normal heart sound present GI Inspection: Yes normal to inspection Palpation (GI): Soft to palpation Percussion: Yes normal to percussion Auscultation: normal bowel sounds Assessment and Plan Assessment & Plan (1) Hx of colonoscopy: Comment: 04/2023 Code(s): Z98.890 - Other specified postprocedural states (2) Perimenopause: 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 She will have a colonoscopy in April. Patient is up-to-date with the Pap smear mammogram by client experience consultant (4) Migraines: Code(s): G43.909 - Migraine, unspecified, not intractable, without status migrainosus Plan: Preventive treatment discussed with the patient she will try 10 mg of nortriptyline follow-up in 6 weeks Medications: New nortriptyline 10 mg PO BEDTIME 30 caps 3RF Coding Level of Care Code Est Pt Prev Care 40-64y(34162) Diagnoses Hx of colonoscopy Z98.890 Perimenopause N95.1 Annual physical exam Z00.00 Migraines G43.909
== END 2023-03-21 10:04 | disposition home or self-care (01) ==
PROVIDERS: PCP Internal Medicine; Visit Provider Internal Medicine
DX: Z98.890 Other specified postprocedural states (principal); N95.1 Menopausal and female climacteric states; Z00.00 Encounter for general adult medical examination without abnormal findings; G43.909 Migraine, unspecified, not intractable, without status migrainosus
CPT/HCPCS: 99396

== ENCOUNTER 2023-05-07 09:17 | Outpatient (AMB) | payer OTHER, SELFPAY ==
--- NOTE | 2023-05-07 09:41 | A.OFFPC_ITS ---
Vital Signs 05/07/23 09:42 Height 5 ft 4 in Weight 135 lb BMI 23.2 BP 120/74 Blood Pressure Location Lt brachial Position Sitting Pulse 88 Pulse Source Pulse Oximeter Pulse Oximetry (%) 98 Oxygen Delivery Method Room Air Intake Visit Reasons: Follow up complex on new med Allergies No Known Allergies Allergy (Verified 05/07/23 09:43) Medication List - Last Reconciled 05/07/23 by Mikayla Yanez MD bisacodyl (Dulcolax (bisacodyl)) 20 mg (4 x 5 mg) PO ONCE 1 day ferrous sulfate (Feosol) 325 mg PO DAILY PRN polyethylene glycol 3350 (Miralax) 238 grams PO ONCE PRN 1 day Ubrelvy (ubrogepant) 100 mg PO ONCE NS Tobacco use date assessed: 05/07/23 HPI Follow up complex on new med HPI Details Pt presents for f/u migraine PERSON. Pt could not tolerate Nortryptyline, made her drowsy. Pt needs to take up to 20 tabl of Ubrelvy a month for chronic migraines with good relief. Patient is planning to go to [place] for migraine workup including MRI because her insurance has a high deductible the patient can not afford. She continues to take iron supplement for chronic iron deficiency anemia secondary to heavy menses. 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 Navdeep Young, Gabby Porras, Gino Kramer and colleagues, with an educational susan from [employer]. Review of Systems Const All systems reviewed & are unremarkable except as noted in HPI and below Reports no additional complaints Eyes Reports no additional complaints ENT Reports no additional complaints Card Reports no additional complaints Resp Reports no additional complaints GI Reports no additional complaints Reports no additional complaints Physical exam (Primary Care) Vital Signs: Last Vital Signs Pulse 88 05/07/23 09:42 BP 120/74 05/07/23 09:42 Pulse Ox 98 05/07/23 09:42 Oxygen Delivery Method Room Air 05/07/23 09:42 BMI result Body Mass Index 23.2 Tobacco/Smoking Status: Tobacco use Status Tobacco use date assessed 05/07/23 05/07/23 09:54 Patient Tobacco Use Status Former Tobacco user (20 05/07/23 09:45 years ) Tobacco use type Cigarette 05/07/23 09:45 e-Cigarette/Vaping Use Never Used 05/07/23 09:45 Thrive Assessment: Date of Thrive Assessment Date Thrive assessed 03/21/23 05/07/23 09:45 Const General: no acute distress HENMT Head: Yes normal to inspection Neck Neck: Yes supple Resp Effort & Inspection: normal respiratory effort Auscultation: clear to auscultation bilaterally Cardio Rhythm: regular rhythm Heart sounds: S1 normal heart sound present and S2 normal heart sound present Assessment and Plan Assessment & Plan (1) Migraines: Code(s): G43.909 - Migraine, unspecified, not intractable, without status migrainosus Plan: Continue Ubrelvy for migraine headaches, it is medically necessary for patient to receive 20 tablets a month for treatment of migraine headaches. 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 Don't exceed 2 tablets in 24 hours 100 mg PO ONCE 20 tabs 4RF NS Coding Level of Care Code Est Pt Level 3 (88677) Diagnoses Migraines G43.909 Iron deficiency anemia D50.9
[2023-05-07 09:42] VITALS: BP 120/74; PULSE 88; O2SAT 98; BMI 23.2
== END 2023-05-07 11:27 | disposition home or self-care (01) ==
PROVIDERS: PCP Internal Medicine; Visit Provider Internal Medicine
DX: G43.909 Migraine, unspecified, not intractable, without status migrainosus (principal); D50.9 Iron deficiency anemia, unspecified
CPT/HCPCS: 99213

== ENCOUNTER 2023-05-14 07:51 | Day surgery (SDC) | payer OTHER, SELFPAY ==
--- NOTE | 2023-05-14 08:22 | MHC.SHP ---
Pre-Procedural Eval Section A - 24 Hr Update-Section A only Date of Service: 05/14/23 The patient is an INPATIENT: No The patient has been examined within 24 hours of the surgical procedure. The History & Physical has been completed within 30 days and I have reviewed it.: No Section B - Complete if H&P > 30 days Chief Complaint: Colon cancer screening, dyspepsia, SILVIA Relevant Family History (Specify if Yes): No Relevant Social History: Tobacco Use (Former smoker) Present Medications: see Short Stay Collaborative assessment Medical History: Significant History (Rectal itching Normal pelvic exam Annual physical exam Iron deficiency anemia Migraines) History of Previous Operations: Relevant previous surgery/procedure and date(s) (H/O cervical polypectomy) Allergies: Allergies Allergy/AdvReac Type Severity Reaction Status Date / Time No Known Allergies Allergy Verified 05/07/23 09:43 Review of Systems Sugical H&P ROS: Negative: Constitution, Cardiovascular, Respiratory and Gastrointestinal Exam Surgical H&P Exam: Normal: Heart, Normal: Lungs, Normal: Extremities and Normal: Abdomen Plan Diagnosis/Plan: Change (proceed with colon only since EGD was not approved by her insurance) I have reviewed the history and physical and performed a pertinent physical examination on my patient. No changes have occurred unless specified. Time Spent With Patient Time: Total time managing care of this patient today ____ minutes.
[2023-05-14 08:23] VITALS: BMI 22.9
[2023-05-14 08:27] LABS: UPreg QC Valid YES; Urine Pregnancy NEGATIVE (NEGATIVE)
[2023-05-14 08:28] VITALS: BP 115/70; PULSE 72; RESP 16; TEMP 36.8; O2SAT 99
--- NOTE | 2023-05-14 08:31 | P.CONAN_ITS ---
[facility] Active Problems Active Problems: All Active Problems (Updated 05/07/23 @ 11:26 by Mikayla Yanez MD) Hx of colonoscopy (Acute) Perimenopause (Acute) Encounter for screening colonoscopy (Acute) Cough (Acute) Cervical cancer screening (Acute) H/O cervical polypectomy (Acute) Oral mucosal lesion (Acute) Menorrhagia (Acute) Migraines (Acute) Rectal itching (Acute) Normal pelvic exam (Acute) Annual physical exam (Acute) Iron deficiency anemia (Acute) Past Medical History Medical History (Updated 05/07/23 @ 11:26 by Mikayla Yanez MD) Rectal itching Normal pelvic exam Annual physical exam Iron deficiency anemia Migraines Family History Family History Father Hypertension High cholesterol Mother High cholesterol Family history of problems with anesthesia: No Surgical History Surgical History H/O cervical polypectomy History of Problems with Anesthesia: No Social History Social History Household Members Other:: , 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, 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 [employer] Housing: House Alcohol intake: current Alcohol intake frequency: holidays/special occasions only Patient Tobacco Use Status: Former Tobacco user Tobacco use type: Cigarette Years Smoked: 10 years e-Cigarette/Vaping Use: Never Used Use of substances other than those prescribed or required for medical reasons: No Are you DNR?: No Advance Directives: No Advance Directives Information Provided: Yes Current occupational status: employed Cognitive needs: No Hearing needs: No Vision needs: Yes Meds Allergies Allergy/AdvReac Type Severity Reaction Status Date / Time No Known Allergies Allergy Verified 05/07/23 09:43 Active Medications: Current Medications Lactated Ringer's (Lr) 1,000 mls @ 50 mls/hr IVCONT .Q20H [facility] Home Medications Medication Instructions Recorded Confirmed Last Taken Type ferrous sulfate 325 mg (65 mg 325 mg PO DAILY PRN 12/07/22 05/07/23 Unknown History iron) tablet (Feosol) Exam Height,Weight and Vital Signs: Height 5 ft 4 in Weight 60.441 kg Pertinent Lab Results Pertinent Lab Results: Laboratory Tests 05/14/23 08:11 Urine Test NEGATIVE Airway Mallampati Class: II TM Dist: >3cm Neck ROM: Full Heart: rrr Lungs: cta Assessment and Plan Assessment Anesthesia Assessment: Anesthesia Plan Discussed and Chart Reviewed Final Anesthetic Review Family History of Problems with Anesthesia: No History of Problems with Anesthesia: No NPO: Yes ASA Class: II Final Preanesthetic Review: No Changes in Pt Med Stat, Meds/Allgs Chart Reviewed and Consent Obtained/Reviewed Patient Risk: Low Procedure Risk: Low Anesthetic Plan Anesthetic Plan: MAC: Disposition: Standard PACU
[2023-05-14] MEDS: Lactated Ringers 1,000 ML 50 ML IVCONT (08:42)
[2023-05-14 09:32] VITALS: BP 101/64; PULSE 82; RESP 16; TEMP 36.5; O2SAT 99
--- NOTE | 2023-05-14 09:32 | W.PM.OPN ---
Operative Note Operative Note Date of Service: 05/14/23 Narrative: COLONOSCOPY TILL CECUM WITH SNARE POLYPECTOMY Pre-op diagnosis: Colon cancer screening. Post-op diagnosis:? Colon polyps, Diverticulosis, hemorrhoids Endoscopist:? Yonathan Yanez MD Anesthesia:?MAC Consent: Indications for the procedure and potential complications of bleeding, perforation, reaction to medications and missed diagnosis were discussed with the patient and informed consent was obtained. Instrument: Olympus PCF H 190 L variable stiffness pediatric colonoscope Monitoring: Vital signs and clinical assessment, intermittent blood pressure monitoring, continuous EKG monitoring, Pulse oximetry and Carbon Dioxide monitoring were done throughout the procedure. Please see anesthesia flowsheet. Colon withdrawl time was 18 minutes. Procedure: The patient was placed in the left lateral decubitis position and pre-procedure medications were administered. After a digital rectal examination of the ano-rectum, the video colonoscope was inserted into the rectum and advanced through the colon to the cecum. The colonoscope was slowly withdrawn in a retrograde panoramic fashion and the colon mucosa was carefully examined including a retroflexed view of the rectum. Findings and interventions are described below. Procedure Difficulty: Colon was long and tortuous and there was some loop formation Findings: Terminal Ileum: Not evaluated Cecum: Normal Ascending Colon: Scattered moderate diverticulosis throughout the entire colon Transverse Colon: Scattered moderate diverticulosis throughout the entire colon Descending Colon: Scattered moderate diverticulosis throughout the entire colon Sigmoid Colon: Two 8 - 10 mm sessile polyps - removed with a cold snare. Moderate diverticulosis Rectum: Normal Ano-rectum: Moderate internal hemorrhoids Colon preparation: Excellent. [place] Bowel Preparation Scale Right colon; 3 Transverse colon: 3 Left colon; 3 (0 = Unprepared colon segment with mucosa not seen due to solid stool that cannot be cleared. 1 = Portion of mucosa of the colon segment seen, but other areas of the colon segment not well seen due to staining, residual stool and/or opaque liquid. 2 = Minor amount of residual staining, small fragments of stool and/or opaque liquid, but mucosa of colon segment seen well. 3 = Entire mucosa of colon segment seen well with no residual staining, small fragments of stool or opaque liquid) Impression and Post Procedure Diagnosis: Colonoscopy Findings: Two medium sized polyps were removed Moderate diverticulosis seen in the entire colon Moderate hemorrhoids on retroflexed exam. Plan: Pt has a FU appointment on with ALEX Pulido. Repeat Colonoscopy in 3-5 years if polyps are adenomatous and 10 year if polyps are hyperplastic. Above findings were reviewed with the patient and relevant handouts were given and the discharge area.
[2023-05-14 09:48] VITALS: BP 111/73; PULSE 61; RESP 17; TEMP 36.4; O2SAT 96
== END 2023-05-14 09:38 | disposition home or self-care (01) ==
PROVIDERS: Anesthesiology; PCP Internal Medicine; Visit Provider Internal Medicine Gastroenterology
PROC: 0DJD8ZZ Inspection of Lower Intestinal Tract, Via Natural or Artificial Opening Endoscopic (ICD-10-PCS; CPT 45378; principal; 2023-05-14 09:20)
DX: Z12.11 Encounter for screening for malignant neoplasm of colon (principal); D12.5 Benign neoplasm of sigmoid colon; K57.30 Diverticulosis of large intestine without perforation or abscess without bleeding; K64.8 Other hemorrhoids; K56.2 Volvulus; D50.9 Iron deficiency anemia, unspecified; L29.0 Pruritus ani
CPT/HCPCS: 45385; 81025; 88305; J2704

== ENCOUNTER → 2023-05-14 07:51 | Outpatient (BNV) | payer OTHER, SELFPAY | PROVIDERS: PCP Internal Medicine; Visit Provider Internal Medicine Gastroenterology | DX: Z12.11 Encounter for screening for malignant neoplasm of colon (principal); D12.5 Benign neoplasm of sigmoid colon; K57.90 Diverticulosis of intestine, part unspecified, without perforation or abscess without bleeding; K64.8 Other hemorrhoids | CPT/HCPCS: 45385 ==

== ENCOUNTER 2023-05-28 07:54 | Outpatient (AMB) | payer OTHER, SELFPAY ==
--- NOTE | 2023-05-28 08:12 | A.OFFVIS_ITS ---
Intake Vital Signs 05/28/23 08:14 Height 5 ft 4 in Weight 132 lb BMI 22.7 BP 118/69 Blood Pressure Location Lt brachial Position Sitting Pulse 77 Intake Visit Reasons: S/p egd/colon Intake Note: Patient follow up for Colonoscopy results. Patient cc: side to side abdominal pain on and off. Denies any other GI issues. 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 She has many questions- She is upset she was not approved for EGD- she has intermittent epigastric pain- seems to be consistent, unable to associate anything specific- she does worry due to family hx- unclear- She has no nausea or vomiting. 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 [employer] Housing: House Alcohol intake: current Alcohol intake frequency: holidays/special occasions only Patient Tobacco Use Status: Former Tobacco user Tobacco use type: Cigarette Years Smoked: 10 years e-Cigarette/Vaping Use: Never Used Current occupational status: employed Cognitive needs: No Hearing needs: No Vision needs: Yes Female Reproductive History Menstrual Age of Menarche: 14 Review of Systems Const All systems reviewed & are unremarkable except as noted in HPI and below GI Reports abdominal pain, Denies hematochezia, Denies nausea and Denies vomiting Physical Exam Vital Signs: Last Vital Signs Pulse 77 05/28/23 08:14 BP 118/69 05/28/23 08:14 BMI result Body Mass Index 22.7 Const General: cooperative, healthy appearing, comfortable and no acute distress Orientation/consciousness: patient oriented x3 Limitations: no limitations Skin General skin exam: no rashes or lesions noted Neuro General: patient oriented x3 Extrem General: Yes full ROM Psych Appearance: grossly normal and well kempt Mental Status: mental status grossly normal Speech and movement: Normal speech and movement present and Clear speech present Affect: normal affect Attitude: cooperative Thought process: Normal thought process present Thought content: Normal thought content present Insight: Good insight present (Psych) Judgement: Good judgement present (Psych) Results Reviewed Results Reviewed: mpression and Post Procedure Diagnosis: Colonoscopy Findings: Two medium sized polyps were removed Moderate diverticulosis seen in the entire colon Moderate hemorrhoids on retroflexed exam. Plan: Pt has a FU appointment on with ALEX Pulido. Repeat Colonoscopy in 3-5 years if polyps are adenomatous and 10 year if polyps are hyperplastic. Above findings were reviewed with the patient and relevant santoro roverto: Dolly Cano Age/Sex: 52/F Attending: Yonathan Yanez MD : 1970 Submitted by: Yonathan Yanez MD Copies to: Mikayla Yanez MD MR #: [id number] Status: [facility] Collected: 05/14/23 Location: [facility] Received: 05/14/23 Diagnosis Colon, sigmoid, polypectomies: Fragments of tubular adenomata; negative for high-grade dysplasia or carcinoma. Clinical History Pre-Op Dx: Screening Post-Op Dx: Colon polyps, diverticulosis, hemorrhoids Microscopic Description Microscopic sections reviewed. Material Received Polyps sigmoid colon Gross Description Received in formalin labeled ?polyps sigmoid colon? are 2 trimble rectangular tissue fragments measuring 0.4 and 0.6 cm, submitted in toto in a cassette labeled A. CEDS Copies To Mikayla Yanez MD [address] [place] [address] [address] [place], [place] [id number] Yonathan Yanez MD [address] [place] [address] [address] [place], [place] [id number] NOTE: Unless otherwise stated, all tissue is formalin-fixed and paraffin- embedded. Some or all of the immunohistochemical tests reported herein may have been developed and their performance characteristics determined by [facility]. They have not been cleared or approved by the U.S. Food and Drug Administration (FDA). However, the FDA has determined that such clearance or approval is not necessary. This laboratory is certified under the Clinical Laboratory Improvement Amendments of 1988 (CLIA) as qualified to perform high complexity clinical laboratory testing. Electronically Signed By: Kris Burt MD 05/16/23 [id number] Patient: Dolly Cano Age/Sex: 52/F MR#: [id number] Page 1 of 1 Assessment & Plan Assessment & Plan (1) Hx of colonoscopy: Comment: 04/2023 Beau Code(s): Z98.890 - Other specified postprocedural states Plan: Reccommend 3 year repeat- (2) Tubular adenoma of colon: Comment: Index screen-tubular adenoma Code(s): D12.6 - Benign neoplasm of colon, unspecified Plan: Repeat asymptomatic colonoscopy 3 (3) Diverticulosis of colon: Comment: Reviewed diverticulosis/diverticulitis ER protocol Code(s): K57.30 - Diverticulosis of large intestine without perforation or abscess without bleeding Plan: ER protocol HFD (4) Hemorrhoids: Code(s): K64.9 - Unspecified hemorrhoids Plan: HFD (5) Epigastric pain: Comment: Chronic, reviewed labs normal enzymes Code(s): R10.13 - Epigastric pain Plan: Upper GI series Plan 3 year repeat colon D/D- ER protocol HFD Orders: Orders [place] upper GI series Today R10.13 - Epigastric pain Patient Instructions: 52-year-old female chronic epigastric pain follows up after index screening colonoscopy with polyp-s EGD was declined by insurance carrier Schedule upper GI series She will try to identify anything specific Reviewed procedure report and pathology as well as recommendation Repeat asymptomatic colonoscopy 3 years Recommend all first-degree relatives begin screening at age 40 Diverticulosis/diverticulitis ER protocol review Maintain high-fiber diet Avoid straining with hemorrhoids Coding Level of Care Code Est Pt Level 3 (79517) Diagnoses Hx of colonoscopy Z98.890 Tubular adenoma of colon D12.6 Diverticulosis of colon K57.30 Hemorrhoids K64.9 Epigastric pain R10.13 Time Spent (min) 30
[2023-05-28 08:14] VITALS: BP 118/69; PULSE 77; BMI 22.7
== END 2023-05-28 08:45 | disposition home or self-care (01) ==
PROVIDERS: PCP Internal Medicine; Visit Provider Physician Assistant
DX: Z98.890 Other specified postprocedural states (principal); D12.6 Benign neoplasm of colon, unspecified; K57.30 Diverticulosis of large intestine without perforation or abscess without bleeding; K64.9 Unspecified hemorrhoids; R10.13 Epigastric pain
CPT/HCPCS: 99213

== ENCOUNTER → 2023-05-28 07:54 | Outpatient (BNVA) | payer OTHER, SELFPAY | PROVIDERS: PCP Internal Medicine; Visit Provider Physician Assistant ==

== ENCOUNTER 2023-12-21 09:58 | Outpatient (AMB) | payer OTHER, SELFPAY ==
--- NOTE | 2023-12-21 10:05 | MHC.PC.OV ---
Vital Signs 12/21/23 10:06 Height 5 ft 4 in Weight 139 lb BMI 23.9 BP 108/66 Blood Pressure Location Lt brachial Position Sitting Pulse 71 Pulse Source Pulse Oximeter Pulse Oximetry (%) 100 Oxygen Delivery Method Room Air Intake Visit Reasons: Follow up Intake Note: Pt is here today for a follow up visit. Allergies No Known Allergies Allergy (Verified 12/21/23 10:07) Tobacco use date assessed: 12/21/23 Dental Screening Dental Screen Date: 12/21/23 Did you have a dental visit in the last 12 months?: Yes Did you have a dental problem in the last 6 months where you did not have access to dental care?: No Was dental information given to patient?: Patient has dentist HPI Follow up HPI Details Pt presents for f/u chronic migraine headaches and iron deficiency anemia due to menorrhagia. She had a GI workup in [place] with negative EGD and colonoscopy in May showed 2 tubular adenoma polyps and repeat colonoscopy in 3 years is recommended. Patient has been taking iron supplement daily. She follows up with urology for chronic migraine headaches. 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 1. Little interest or pleasure in doing things: not at all 2. Feeling down, depressed, or hopeless: not at all 3. Trouble falling or staying asleep, or sleeping too much: not at all 4. Feeling tired or having little energy: more than half the days 5. Poor appetite or overeating: not at all 6. Feeling bad about yourself - or that you are a failure or have let yourself or your family down: not at all 7. Trouble concentrating on things, such as reading the newspaper or watching television: not at all 8. Moving or speaking so slowly that other people could have noticed. Or the opposite - being so fidgety or restless that you have been moving around a lot more than usual: not at all 9. Thoughts that you would be better off or of hurting yourself in some way: not at all Total score: 2 Depression Screening Interpretation: Negative Depression Screening Done: Yes 22097 - PHQ-9 Billing: Yes Source: Developed by Drs. Navdeep Young, Gabby Porras, Gino Kramer and colleagues, with an educational susan from [employer]. Thrive Questionnaire Date Thrive assessed: 12/21/23 I am a: Patient What is your living situation today?: I have a steady place to live Within the past 12 months, did the food you bought not last and you didn't have the money to get more?: Never true Within the past 12 months, did you worry whether your food would run out before you got money to buy more?: Never true Do you have trouble paying for medicines?: No Do you have trouble getting transportation to medical appointments?: No Do you have trouble paying your heating and electricity bill?: No Do you have trouble taking care of your child, family member or friend?: No Do you have trouble with day-to-day activities such as bathing, preparing meals, shopping, managing finances, etc.?: No Are you currently unemployed and looking for a job?: No Are you interested in more education?: No Please select the resources that you would like help with: None Currently or been in a relationship where the following occur: No concerns reported THRIVE Score: 0 AUDIT C Alcohol Use Questionnaire (AUDIT-C) 1. How often do you have a drink containing alcohol?: 2-4 times a month 2. How many drinks containing alcohol do you have on a typical day when you are drinking?: 1 or 2 3. How often do you have six or more drinks on one occasion?: Never Total Score: 2 SANDEEP-7 AMB Questionnaire SANDEEP-7 Date SANDEEP - 7 assessed: 12/21/23 Feeling nervous, anxious, or on edge: 1 = Several days Not being able to stop or control worryin = Several days Worrying too much about different things: 1 = Several days Trouble relaxin = Several days Being so restless that it is hard to sit still: 0 = Not at all Becoming easily annoyed or irritable: 1 = Several days Feeling afraid as if something awful might happen: 0 = Not at all Total SANDEEP-7 score (0-4 normal; 5-9 mild; 10-14 moderate; 15-21 severe): 5 Source: Developed by Drs. Navdeep Young, Gabby Porras, Gino Kramer and colleagues, with an educational susan from [employer]. Review of Systems Const All systems reviewed & are unremarkable except as noted in HPI and below Eyes Reports no additional complaints ENT Reports no additional complaints Card Reports no additional complaints Resp Reports no additional complaints GI Reports no additional complaints Reports no additional complaints Physical exam (Primary Care) Vital Signs: Last Vital Signs Pulse 71 12/21/23 10:06 BP 108/66 12/21/23 10:06 Pulse Ox 100 12/21/23 10:06 Oxygen Delivery Method Room Air 12/21/23 10:06 BMI result Body Mass Index 23.9 Tobacco/Smoking Status: Tobacco use Status Tobacco use date assessed 12/21/23 12/21/23 10:10 Patient Tobacco Use Status Former Tobacco user 12/21/23 10:10 Tobacco use type Cigarette 12/21/23 10:10 e-Cigarette/Vaping Use Never Used 12/21/23 10:10 PHQ-9: PHQ-9 Score PHQ-9: Total score 2 12/21/23 10:10 Depression Screening Interpretation: Negative Thrive Assessment: Date of Thrive Assessment Date Thrive assessed 12/21/23 12/21/23 10:10 Currently or been in a relationship where the following occur: No concerns reported Const General: no acute distress HENMT Head: Yes normal to inspection Mouth: Normal oral and palatal mucosa present Eyes General: appearance normal, both eyes and all related structures Neck Neck: Yes supple Resp Effort & Inspection: normal respiratory effort Auscultation: clear to auscultation bilaterally Cardio Rhythm: regular rhythm Heart sounds: S1 normal heart sound present and S2 normal heart sound present GI Inspection: Yes normal to inspection Palpation (GI): Soft to palpation Percussion: Yes normal to percussion Auscultation: normal bowel sounds Coding Level of Care Code Est Pt Level 4 (62450) Diagnoses Migraines G43.909 Iron deficiency anemia D50.9 Menorrhagia N92.0 Tubular adenoma of colon D12.6 Assessment & Plan Assessment & Plan (1) Migraines: Comment: Established with neuro Code(s): G43.909 - Migraine, unspecified, not intractable, without status migrainosus Category: Medical Plan: Follow-up with neurology (2) Iron deficiency anemia: Comment: Due to having menses on iron supplement Code(s): D50.9 - Iron deficiency anemia, unspecified Category: Medical Plan: Continue iron supplement check CBC and iron count (3) Menorrhagia: Comment: Established with design director Code(s): N92.0 - Excessive and frequent menstruation with regular cycle Category: Medical Plan: Follow-up with design director (4) Tubular adenoma of colon: Comment: tubular adenomas 04/2023, recheck 3 yrs, Code(s): D12.6 - Benign neoplasm of colon, unspecified Category: Medical Plan: Repeat colonoscopy in 3 years Orders: Orders Comprehensive [place]. Panel Fast Today D50.9 - Iron deficiency anemia, unspecified, G43.909 - Migraine, unspecified, not intractable, without status migrainosus, N92.0 - Excessive and frequent menstruation with regular cycle Complete Blood Count Auto Diff Today D50.9 - Iron deficiency anemia, unspecified, G43.909 - Migraine, unspecified, not intractable, without status migrainosus, N92.0 - Excessive and frequent menstruation with regular cycle Lipid Panel Today D50.9 - Iron deficiency anemia, unspecified, G43.909 - Migraine, unspecified, not intractable, without status migrainosus, N92.0 - Excessive and frequent menstruation with regular cycle Magnesium Today D50.9 - Iron deficiency anemia, unspecified, G43.909 - Migraine, unspecified, not intractable, without status migrainosus, N92.0 - Excessive and frequent menstruation with regular cycle IRON PROFILE Today D50.9 - Iron deficiency anemia, unspecified, G43.909 - Migraine, unspecified, not intractable, without status migrainosus, N92.0 - Excessive and frequent menstruation with regular cycle
[2023-12-21 10:06] VITALS: BP 108/66; PULSE 71; O2SAT 100; BMI 23.9
== END 2023-12-21 12:18 | disposition home or self-care (01) ==
PROVIDERS: PCP Internal Medicine; Visit Provider Internal Medicine
DX: G43.909 Migraine, unspecified, not intractable, without status migrainosus (principal); D50.9 Iron deficiency anemia, unspecified; N92.0 Excessive and frequent menstruation with regular cycle; D12.6 Benign neoplasm of colon, unspecified

== ENCOUNTER → 2023-12-21 09:58 | Outpatient (BNVA) | payer SELFPAY | PROVIDERS: PCP Internal Medicine; Visit Provider Internal Medicine ==

== ENCOUNTER 2023-12-21 10:20 | Outpatient (REF) | payer OTHER, SELFPAY ==
[2023-12-21 13:20] LABS: MANUAL DIFF FLAG NO
[2023-12-21 13:32] LABS: Basophils Absolute Auto 0.1 X10*3/uL (0.0-0.2); Eosinophils Absolute Auto 0.2 X10*3/uL (0.0-0.4); Eosinophils Percent Auto 4.1 % (0-4); Hematocrit 39.7 % (37.0-47.0); Hemoglobin 13.1 g/dl (12.0-16.0); Imm Gran Abs Auto 0.02 X10*3/uL (0.00-0.03); Imm Gran Pct Auto 0.4 % (0.0-0.4); Lymphocytes Absolute Auto 1.2 X10*3/uL (1.2-4.9); Lymphocytes Percent Auto 23.4 % (20-40); Mean Corpuscular Volume 91.1 fL (80.0-98.0); Mean Platelet Volume 11.8 fL (9.4-12.3); Monocytes Absolute Auto 0.4 X10*3/uL (0.1-1.2); Monocytes Percent Auto 7.3 % (2-11); Neutrophils Absolute Auto 3.1 x10*3/uL (2.0-8.3); Neutrophils Percent Auto 63.8 % (45-73); Platelet Count 212 X10*3/uL (160-400); Red Blood Count 4.36 X10*6/uL (4.20-5.50); White Blood Count 4.9 X10*3/uL (4.8-10.8)
[2023-12-21 14:20] LABS: Alanine Aminotransferase 9 U/L (0-31); Albumin Level 3.9 g/dL (3.5-5.0); Alkaline Phosphatase 39 U/L (39-117); Aspartate Amino Transferase 19 U/L (5-31); Bilirubin Total 0.6 mg/dL (0.0-1.0); Blood Urea Nitrogen 12 mg/dL (9-16); Calcium 9.1 mg/dL (8.4-10.2); Cholesterol 151 mg/dL (<200); Estimated Glomerular Filt Rate > 60; Glucose Fasting 76 mg/dL (60-99); HDL Cholesterol 48 mg/dL (>40); Iron 153 mcg/dL (30-160); LDL Cholesterol Calculated 88 mg/dL (<100); Magnesium 2.3 mg/dL (1.6-2.6); Percent Iron Saturation 54 % (15-50); Total Iron Binding Capacity 285 mcg/dL (228-428); Total Protein 6.6 g/dL (6.5-8.0); Triglycerides 77 mg/dL (<150); Unsaturated Iron Binding 132 ug/dL
[2023-12-21 14:32] LABS: Anion Gap 8 (12-20); Carbon Dioxide 27 mmol/L (22-29); Chloride 108 mmol/L (96-108); Potassium 3.9 mmol/L (3.3-5.1); Sodium 139 mmol/L (135-145)
== END 2023-12-21 10:21 | disposition home or self-care (01) ==
LOC: HO.HMGCLDS 10:20
PROVIDERS: PCP Internal Medicine; Visit Provider Internal Medicine
DX: G43.909 Migraine, unspecified, not intractable, without status migrainosus (principal); D50.9 Iron deficiency anemia, unspecified; N92.0 Excessive and frequent menstruation with regular cycle; Z86.0101 Personal history of adenomatous and serrated colon polyps
CPT/HCPCS: 36415; 80053; 80061; 83540; 83735; 85025; 96127

== ENCOUNTER 2024-01-11 10:44 | Outpatient (REF) | payer OTHER, SELFPAY ==
--- NOTE | ~2024-01-11 | MM_ITS ---
EXAMINATION: MM SCREENING DIGITAL BREAST TOMOSYNTHESIS, BILATERAL CLINICAL INFORMATION: Screening. Asymptomatic. COMPARISON: Mammography: Comparison is made with available priors TECHNIQUE: Digital breast mammography with tomosynthesis is performed in both the craniocaudal and mediolateral oblique views along with computer-aided detection (CAD). FINDINGS: The breasts are heterogeneously dense, which may obscure small masses (ACR BI-RADS breast composition Category c). There are no significant masses, abnormal calcifications, or other abnormalities. MM/MM tomosynthesis screening BI IMPRESSION: No mammographic evidence of malignancy. ASSESSMENT: BI-RADS BI-RADS 1 - Negative RECOMMENDATION: Routine annual mammography screening. 1 year F/U This examination should not preclude the clinical evaluation of a suspicious palpable abnormality. This patient's information was entered into a reminder system with a target due date for their next mammogram. Electronically signed by: Shania Harrell DO 01/22/2024 10:57 AM [facility]
== END 2024-01-11 10:45 | disposition home or self-care (01) ==
LOC: HO.MAMMO 10:44
PROVIDERS: PCP Internal Medicine; Visit Provider Internal Medicine
DX: Z12.31 Encounter for screening mammogram for malignant neoplasm of breast (principal)
CPT/HCPCS: 77063; 77067

== ENCOUNTER → 2024-01-11 11:00 | Outpatient (BNV) | payer OTHER, SELFPAY | PROVIDERS: PCP Internal Medicine; Visit Provider Internal Medicine | DX: Z12.31 Encounter for screening mammogram for malignant neoplasm of breast (principal) | CPT/HCPCS: 77063; 77067 ==

== ENCOUNTER 2024-03-20 12:42 | Outpatient (AMB) | payer OTHER, SELFPAY ==
--- NOTE | 2024-03-20 13:08 | A.OFFVIS_ITS ---
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 Cattle Sorter Required: No Cattle Sorter Services: Cattle Sorter Present Information Interpreted: clinical only Director Of Student Services: Director Of Student Services Present Allergies No Known Allergies Allergy (Verified 03/20/24 13:09) Medication List - Last Reconciled 03/20/24 by Kell Henao CNM ferrous sulfate (Feosol) 325 mg PO DAILY PRN Ubrelvy (ubrogepant) 100 mg PO ONCE NS Is last menstrual period known: Yes Last menstrual period: 02/27/24 Do you need a note to return to daycare/school/sports/work: No HPI HPI 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 She has a history of heavy periods. She is has a job that is been very stressful and she was suffering a lot for migraine headaches. She took a 2 month leave of absence in went to her country of [place]. While she was there she saw doctors there and had a full evaluation for various issues including MRIs to check a about her headaches and also she saw a tractor operator helper there and had Pap smear and also an ultrasound and a 5 cm polyp was found in the endometrium and she had a procedure to remove that and she had to be in hospital for that because she was so anemic and they had to give her an transfusion of iron 1st. Her periods have started to change in that 1 month will be heavy 1 month will be light and they are starting to be late occasionally. She takes ubrelvy p.r.n. for headache but only when she really needs it. 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 [employer] Housing: House Alcohol intake: current Alcohol intake frequency: holidays/special occasions only Patient Tobacco Use Status: Former Tobacco user Tobacco use type: Cigarette Years Smoked: 10 years e-Cigarette/Vaping Use: Never Used service: No Current occupational status: employed Cognitive needs: No Hearing needs: No Vision needs: Yes Female Reproductive History Menstrual Age of Menarche: 14 Duration of menses: 3-5 days Date of last menstrual period: 02/27/24 control method: none Total pregnancies: 2 Full term: 1 Date of last pap smear: 08/08/23 (negative) History of abnormal pap smear: No Date of Mammogram: 01/11/24 (negative) Physical Exam Vital Signs: Last Vital Signs BP 112/66 03/20/24 13:09 BMI result Body Mass Index 24.0 Const General: healthy appearing, comfortable, no acute distress, well developed and alert Nutritional Appearance: average body habitus Orientation/consciousness: patient oriented x3 Limitations: no limitations HEENT Head: Yes normocephalic Neck Neck: Yes normal visual inspection Chest Chest palpation & inspection: normal inspection of the chest Breast/axilla inspection: normal inspection of the breasts and normal inspection of the axillae Breast/axilla palpation: normal palpation of the breasts and normal palpation of the axillae Resp Effort & Inspection: normal respiratory effort GI Inspection: Yes normal to inspection, No Abdominal wall edema and No distended Palpation (GI): Soft to palpation and nontender General: Yes bladder normal to palpation External Female Exam: normal external appearance and normal appearance of the urethra Speculum Exam - Vagina: normal appearance of the vagina, normal palpation and normal vaginal discharge Speculum Exam - Cervix: normal appearance of the cervix, normal palpation and nontender Bimanual exam- vagina & uterus: normal bimanual exam, normal palpation, uterine size normal, bladder normal to palpation, consistency normal, normal palpation, uterine mobility normal, uterine shape normal, No Cervical tenderness present, non-tender and no cervical motion tenderness Bimanual Exam- Adnexa, other: normal adnexae, no masses, normal and No adnexal tenderness Neuro General: patient oriented x3 Assessment & Plan Assessment & Plan (1) Menorrhagia: Comment: Established with bookbinder chief Code(s): N92.0 - Excessive and frequent menstruation with regular cycle Category: Medical (2) Cervical cancer screening: Comment: History of no abnormal Paps. Last Pap smear 2019 at [facility].; states she had negative Pap smear in [place] during her trip summer. Code(s): Z12.4 - Encounter for screening for malignant neoplasm of cervix Category: Medical (3) Perimenopause: Comment: bookbinder chief Code(s): N95.1 - Menopausal and female climacteric states Category: Medical (4) Women's annual routine gynecological examination: Code(s): Z01.419 - Encounter for gynecological examination (general) (routine) without abnormal findings Category: Medical (5) Endometrial polyp: Comment: History and past +had another 1 found when she visited [place] summer and 5 cm polyp was removed. She had full evaluation and was given all clear. Code(s): N84.0 - Polyp of corpus uteri Category: Medical Plan -----Discussed in this visit the following: healthy balanced diet, regular and consistent exercise, getting recommended health screens, doing the best she can for her particular health concerns, kegel exercises, pap smear screening and followup recommendations, mammography screening and SBE, normal changes in cycles in her life stage--- . Since she had full evaluation and a polyp found and had her Pap smear and everything was deemed fine afterwards and she knows that she is in the rosie menopausal time and she is starting to have periods come late she knows that it is going to be what it will be and she is just writing it out. 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 She has her primary care provider and she just had her mammogram recently and she is taking any medication she takes minimally when she really needs to and she has feels like she has gotten an all clear for everything because her insurance was not paying for in this country so she is feeling relieved. She has intentions to exercise more but she was having hip pain and she got checked by chiropractor in [place] and was told that she is doing the right thing by walking so much at her job. One year or p.r.n. Coding Level of Care Code Est Pt Prev Care 40-64y(01422) Diagnoses Menorrhagia N92.0 Cervical cancer screening Z12.4 Perimenopause N95.1 Women's annual routine gynecological examination Z01.419 Endometrial polyp N84.0
[2024-03-20 13:09] VITALS: BP 112/66; BMI 24.0
== END 2024-03-20 14:01 | disposition home or self-care (01) ==
LOC: HO.HWSM 12:42
PROVIDERS: PCP Internal Medicine; Visit Provider Advanced Practice Midwife
DX: Z01.419 Encounter for gynecological examination (general) (routine) without abnormal findings (principal); N92.0 Excessive and frequent menstruation with regular cycle; N95.1 Menopausal and female climacteric states
CPT/HCPCS: 99396; 99459

== ENCOUNTER → 2024-03-20 12:42 | Outpatient (BNVA) | payer OTHER, SELFPAY | PROVIDERS: PCP Internal Medicine; Visit Provider Advanced Practice Midwife ==

== ENCOUNTER 2024-08-21 09:20 | Outpatient (AMB) | payer OTHER, SELFPAY ==
--- NOTE | 2024-08-21 09:22 | A.OFFPC_ITS ---
Vital Signs 08/21/24 09:27 Height 5 ft 4 in Weight 136 lb BMI 23.3 BP 106/68 Blood Pressure Location Lt brachial Position Sitting Respiration 18 Pulse 79 Pulse Source Pulse Oximeter Temp 98.6 F Temp Source Oral Pulse Oximetry (%) 99 Oxygen Delivery Method Room Air Intake Visit Reasons: PE Intake Note: Pt is here today for PE. Allergies No Known Allergies Allergy (Verified 08/21/24 09:29) Medication List - Last Reconciled 08/21/24 by Mikayla Yanez MD ferrous sulfate (Feosol) 325 mg PO DAILY PRN Ubrelvy (ubrogepant) 100 mg PO ONCE NS Tobacco use date assessed: 08/21/24 Dental Screening Dental Screen Date: 08/21/24 Did you have a dental visit in the last 12 months?: Yes Did you have a dental problem in the last 6 months where you did not have access to dental care?: No Was dental information given to patient?: Patient has dentist HPI PE HPI Details Pt presents for PE. Patient reports intermittent sensation of discomfort in epigastric region not related to food in. She had endoscopy last June in [place] consistent with ? duodenal ulcer with negative biopsy. Patient was prescribed medication ,unknown name, for 1 month which helped for a few months. She reports recurrent symptoms and would like to be referred to GI for endoscopy. Patient denies nausea vomiting hematochezia melena constipation diarrhea. She has been under lot of stress related to her work. 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 1. Little interest or pleasure in doing things: not at all 2. Feeling down, depressed, or hopeless: not at all 3. Trouble falling or staying asleep, or sleeping too much: not at all 4. Feeling tired or having little energy: not at all 5. Poor appetite or overeating: not at all 6. Feeling bad about yourself - or that you are a failure or have let yourself or your family down: not at all 7. Trouble concentrating on things, such as reading the newspaper or watching television: not at all 8. Moving or speaking so slowly that other people could have noticed. Or the opposite - being so fidgety or restless that you have been moving around a lot more than usual: not at all 9. Thoughts that you would be better off or of hurting yourself in some way: not at all Total score: 0 Depression Screening Interpretation: Negative Depression Screening Done: Yes 30785 - PHQ-9 Billing: Yes Source: Developed by Drs. Navdeep Young, Gabby Porras, Gino Kramer and colleagues, with an educational susan from [employer]. Thrive Questionnaire Date Thrive assessed: 08/21/24 I am a: Patient What is your living situation today?: I have a steady place to live Within the past 12 months, did the food you bought not last and you didn't have the money to get more?: Never true Within the past 12 months, did you worry whether your food would run out before you got money to buy more?: Never true Do you have trouble paying for medicines?: No Do you have trouble getting transportation to medical appointments?: No Do you have trouble paying your heating and electricity bill?: No Do you have trouble taking care of your child, family member or friend?: No Do you have trouble with day-to-day activities such as bathing, preparing meals, shopping, managing finances, etc.?: No Are you currently unemployed and looking for a job?: No Are you interested in more education?: No Please select the resources that you would like help with: None Currently or been in a relationship where the following occur: No concerns reported THRIVE Score: 0 AUDIT C Alcohol Use Questionnaire (AUDIT-C) 1. How often do you have a drink containing alcohol?: 2-4 times a month 2. How many drinks containing alcohol do you have on a typical day when you are drinking?: 1 or 2 3. How often do you have six or more drinks on one occasion?: Never Total Score: 2 SANDEEP-7 AMB Questionnaire SANDEEP-7 Date SANDEEP - 7 assessed: 08/21/24 Feeling nervous, anxious, or on edge: 1 = Several days Not being able to stop or control worryin = Not at all Worrying too much about different things: 1 = Several days Trouble relaxin = Not at all Being so restless that it is hard to sit still: 0 = Not at all Becoming easily annoyed or irritable: 1 = Several days Feeling afraid as if something awful might happen: 0 = Not at all Total SANDEEP-7 score (0-4 normal; 5-9 mild; 10-14 moderate; 15-21 severe): 3 Source: Developed by Drs. Navdeep Young, Gabby Porras, Gino Kramer and colleagues, with an educational susan from [employer]. Review of Systems Const All systems reviewed & are unremarkable except as noted in HPI and below Reports no additional complaints Eyes Reports no additional complaints ENT Reports no additional complaints Resp Reports no additional complaints GI Reports no additional complaints Reports no additional complaints Musc Reports no additional complaints Physical exam (Primary Care) Vital Signs: Last Vital Signs Temp 98.6 F 08/21/24 09:27 Pulse 79 08/21/24 09:27 Resp 18 08/21/24 09:27 BP 106/68 08/21/24 09:27 Pulse Ox 99 08/21/24 09:27 Oxygen Delivery Method Room Air 08/21/24 09:27 BMI result Body Mass Index 23.3 Tobacco/Smoking Status: Tobacco use Status Tobacco use date assessed 08/21/24 08/21/24 09:33 Patient Tobacco Use Status Former Tobacco user 08/21/24 09:24 Tobacco use type Cigarette 08/21/24 09:24 e-Cigarette/Vaping Use Never Used 08/21/24 09:24 PHQ-9: PHQ-9 Score PHQ-9: Total score 0 08/21/24 09:33 Depression Screening Interpretation: Negative Thrive Assessment: Date of Thrive Assessment Date Thrive assessed 08/21/24 08/21/24 09:33 Currently or been in a relationship where the following occur: No concerns reported Const General: no acute distress HENMT Head: Yes normal to inspection Ears: hearing grossly normal bilaterally Face and sinus: Yes normal facial exam Mouth: Normal oral and palatal mucosa present Throat: Yes posterior oropharynx normal Eyes General: appearance normal, both eyes and all related structures Neck Neck: Yes no lymphadenopathy and Yes supple Resp Effort & Inspection: normal respiratory effort Auscultation: clear to auscultation bilaterally Cardio Rhythm: regular rhythm Heart sounds: S1 normal heart sound present and S2 normal heart sound present GI Inspection: Yes normal to inspection Palpation (GI): Soft to palpation Percussion: Yes normal to percussion Auscultation: normal bowel sounds Neuro Coordination: [id number] test normal Extrem General: Yes no clubbing, cyanosis or edema Coding Level of Care Code Est Pt Prev Care 40-64y(83115) Diagnoses Duodenal ulcer K26.9 Annual physical exam Z00.00 Iron deficiency anemia D50.9 Migraines G43.909 Additional Codes PHQ-9 - 11463 - PHQ-9 Billing: Yes ([id number]) Assessment & Plan Assessment & Plan (1) Duodenal ulcer: Comment: EGD 08/2023 in [place], question of duodenal ulcer negative biopsy Code(s): K26.9 - Duodenal ulcer, unspecified as acute or chronic, without hemorrhage or perforation Category: Medical Plan: Referred to GI (2) Annual physical exam: Code(s): Z00.00 - Encounter for general adult medical examination without abnormal findings Category: Medical Plan: Well-balanced diet regular physical activity discussed with the patient she is up-to-date with the mammogram colonoscopy and pelvic exam by [facility] (3) Iron deficiency anemia: Comment: Due to having menses on iron supplement Code(s): D50.9 - Iron deficiency anemia, unspecified Category: Medical Plan: Continue iron PRN check the level (4) Migraines: Comment: Controlled on Ubrelvy Code(s): G43.909 - Migraine, unspecified, not intractable, without status migrainosus Category: Medical Plan: Continue current treatment Orders: Referrals Gastroenterology Referral K26.9 - Duodenal ulcer, unspecified as acute or chronic, without hemorrhage or perforation
[2024-08-21 09:27] VITALS: BP 106/68; PULSE 79; RESP 18; TEMP 37; O2SAT 99; BMI 23.3
== END 2024-08-21 11:00 | disposition home or self-care (01) ==
LOC: HO.HMCC 09:21
PROVIDERS: PCP Internal Medicine; Visit Provider Internal Medicine
DX: K26.9 Duodenal ulcer, unspecified as acute or chronic, without hemorrhage or perforation (principal); Z00.00 Encounter for general adult medical examination without abnormal findings; D50.9 Iron deficiency anemia, unspecified; G43.909 Migraine, unspecified, not intractable, without status migrainosus

== ENCOUNTER → 2024-08-21 09:20 | Outpatient (BNVA) | payer OTHER, SELFPAY | PROVIDERS: PCP Internal Medicine; Visit Provider Internal Medicine | DX: Z00.00 Encounter for general adult medical examination without abnormal findings (principal); K26.9 Duodenal ulcer, unspecified as acute or chronic, without hemorrhage or perforation; D50.9 Iron deficiency anemia, unspecified; G43.909 Migraine, unspecified, not intractable, without status migrainosus | CPT/HCPCS: 96127 ==

== ENCOUNTER 2024-08-27 10:06 | Outpatient (REF) | payer OTHER, SELFPAY ==
[2024-08-27 13:10] LABS: MANUAL DIFF FLAG NO
[2024-08-27 13:34] LABS: Hematocrit 37.9 % (37.0-47.0); Hemoglobin 13.0 g/dl (12.0-16.0); Imm Gran Abs Auto 0.01 X10*3/uL (0.00-0.03); Imm Gran Pct Auto 0.2 % (0.0-0.4); Lymphocytes Absolute Auto 1.1 X10*3/uL (1.2-4.9); Mean Corpuscular HGB Conc 34.3 g/dl (31.0-35.0); Mean Corpuscular Hemoglobin 30.2 pg (27.0-33.0); Mean Corpuscular Volume 88.1 fL (80.0-98.0); NRBC Abs Auto 0.000 X10*3/uL (0.0-0.012); NRBC Pct Auto 0.0 /100WBC (0.0-0.2); Platelet Count 239 X10*3/uL (160-400); Red Blood Count 4.30 X10*6/uL (4.20-5.50); White Blood Count 5.2 X10*3/uL (4.8-10.8)
[2024-08-27 13:41] LABS: Alanine Aminotransferase 9 U/L (0-31); Albumin Level 4.3 g/dL (3.5-5.0); Alkaline Phosphatase 49 U/L (39-117); Anion Gap 9 (12-20); Aspartate Amino Transferase 19 U/L (5-31); Blood Urea Nitrogen 10 mg/dL (9-16); Calcium 9.1 mg/dL (8.4-10.2); Carbon Dioxide 27 mmol/L (22-29); Chloride 107 mmol/L (96-108); Cholesterol 144 mg/dL (<200); Estimated Glomerular Filt Rate > 60; HDL Cholesterol 56 mg/dL (>40); Iron 94 mcg/dL (30-160); Percent Iron Saturation 31 % (15-50); Potassium 3.9 mmol/L (3.3-5.1); Sodium 139 mmol/L (135-145); Total Iron Binding Capacity 304 mcg/dL (228-428); Total Protein 7.0 g/dL (6.5-8.0); Triglycerides 46 mg/dL (<150); Unsaturated Iron Binding 210 ug/dL
== END 2024-08-27 10:07 | disposition home or self-care (01) ==
LOC: HO.HMGCLDS 10:06
PROVIDERS: PCP Internal Medicine; Visit Provider Internal Medicine
DX: Z00.00 Encounter for general adult medical examination without abnormal findings (principal); D50.9 Iron deficiency anemia, unspecified; Z13.6 Encounter for screening for cardiovascular disorders
CPT/HCPCS: 36415; 80053; 80061; 82306; 83540; 84443; 85025